=== PATIENT | male | born 1995 | race Hispanic/Latino ===

== ENCOUNTER 2018-10-23 12:17 | Emergency (ER) | payer BC ==
[2018-10-23] MEDS ORDERED: Acetaminophen 500 MG TAB ONE (12:37)
[2018-10-23 12:44] LABS: #Eosinphils 0.1 thou/uL (0.0-0.7); #Lymphocytes 2.2 thou/uL (1.20-3.40); #Monocytes 0.5 thou/uL (0.11-0.59); #Neutrophils 4.7 thou/uL (1.40-6.50); %Basophils 0.6 % (0.0-1.0); %Eosinophils 1.1 % (0.0-10.0); %Lymphocytes 29.6 % (21.0-51.0); %Monocytes 6.4 % (0.0-10.0); %Neutrophils 62.2 % (42.0-75.0); Hemoglobin 16.5 g/dL (14.0-18.0); Mean Corpuscular HGB CONC 34.9 g/dL (32.0-36.0); Mean Corpuscular Hemoglobin 29.6 pg (27.0-31.0); Mean Platelet Volume 8.2 fL (7.4-10.4); Platelet Count 240 thou/uL (130-400); Red Blood Cell (RBC) Count 5.57 mill/uL (4.70-6.10); White Blood Cell (WBC) Count 7.5 thou/uL (4.8-10.8)
[2018-10-23 13:06] LABS: ALT (SGPT) 42 U/L (8-55); AST (SGOT) 27 U/L (5-34); Albumin 4.3 g/dL (3.5-5.0); Alkaline Phosphatase 69 U/L (40-150); Anion Gap 11 mmol/L (10-20); BUN (Urea Nitrogen) 20 mg/dL (8.9-20.6); Bilirubin, Total 1.7 mg/dL (0.2-1.2); Calc. Creatinine Clearance 0 mL/min (70-130); Calcium 9.9 mg/dL (7.8-10.44); Carbon Dioxide 25 mmol/L (22-29); Chloride 106 mmol/L (98-107); Estimated GFR-MDRD 66; Globulin 3.4 g/dL (2.4-3.5); Glucose 109 mg/dL (70-105); Potassium 4.2 mmol/L (3.5-5.1); Protein, Total 7.7 g/dL (6.0-8.3); Sodium 138 mmol/L (136-145)
--- NOTE | 2018-10-23 13:31 | RAD ---
PORTABLE CHEST: HISTORY: Syncope. FINDINGS: Heart size appears upper limits of normal. Mediastinal structures are unremarkable. The lungs are c lear of any infiltrates. IMPRESSION: No active intrathoracic disease. POS: [facility]
--- NOTE | 2018-10-23 13:49 | CT ---
CT OF HEAD NONCONTRAST: INDICATION: Syncope. FINDINGS: There is no evidence of intracranial hemorrhage, mass effect, midline shift, or ventriculomegaly. Ca lvarium is intact. No acute fluid level of the paranasal sinuses. IMPRESSION: No acute intracranial hemorrhage or mass effect. POS: [facility]
[2018-10-23] MEDS ORDERED: Ketorolac Tromethamine 30 MG/ML VIAL ONE (14:58)
[2018-10-23] MEDS ORDERED: Metoclopramide HCl 10 MG/2 ML VIAL ONE (14:58)
[2018-10-23] MEDS ORDERED: Lorazepam 1 MG TAB ONE (15:14)
--- NOTE | 2018-10-26 10:59 | EKG ---
Test Reason : SYNCOPE Blood Pressure : / mmHG Vent. Rate : 062 BPM Atrial Rate : 062 BPM P-R Int : 144 ms QRS Dur : 092 ms QT Int : 394 ms P-R-T Axes : 011 028 006 degrees QTc Int : 399 ms Normal sinus rhythm Normal ECG Confirmed by DI MANZO DO ([id number]), editor continuity and script JEFFERY LEWIS ([id number]) on 10/26/2018 10:59:27 AM Referred By: Confirmed By:DI MANZO DO
== END 2018-10-23 16:40 | disposition home or self-care (01) ==
LOC: ERS 12:17
DX: I95.9 Hypotension, unspecified (principal); R51 Headache
CPT/HCPCS: 70450; 71045; 80053; 85025; 93005; 96361; 96365; 96375; J1885; J2765